=== PATIENT | female | born 1990 | race Caucasian/White ===

== ENCOUNTER 2022-01-31 16:36 | Outpatient (CLI) | payer OTHER, SELFPAY ==
--- NOTE | 2022-01-31 16:30 | US_ITS ---
WS: [id number] THYROID ULTRASOUND HISTORY: thyromegaly COMPARISON: None available. Right lobe: 1.8 cm x 1.4 cm x 5.5 cm (w x ap x l). Volume: 7.5 cm3. Normal size and echotexture. No significant are dominant nodules are present. Left lobe: 1.7 cm x 1.3 cm x 4.7 cm (w x ap x l). Volume: 5.2 cm3. Normal size and echotexture. No significant or dominant nodules are present. Isthmus: 0.3 cm. Subtle hypoechoic area along the LEFT cervical chain may be a small cluster of lymph nodes. This is e xternal to the thyroid but medial to the carotid. No increased vascularity. US/US thyroid 55050 IMPRESSION: Normal thyroid ultrasound. Subtle ill-defined hypoechoic area measuring 1.6 x 0.8 x 1.6 cm along the LEFT cervical chain. This is between the thyroid and the carotid artery. Suspect thi s is probably small cluster of lymph nodes. If this is palpable consider follow -up neck CT.
== END 2022-01-31 16:37 | disposition home or self-care (01) ==
LOC: RAD 16:37
PROVIDERS: PCP Family Medicine; Visit Provider Internal Medicine
DX: E01.0 Iodine-deficiency related diffuse (endemic) goiter (principal)
CPT/HCPCS: 76536

== ENCOUNTER 2022-02-12 08:49 | Outpatient (CLI) | payer OTHER, SELFPAY ==
--- NOTE | 2022-02-12 09:15 | NM_ITS ---
WS: [id number] NUCLEAR MEDICINE 24 HOUR I-123 THYROID UPTAKE INDICATION: Hyperthyroidism TECHNIQUE: I-123 24 HOUR THYROID UPTAKE WITH PLANAR IMAGING. 133 [facility] JASON 123 COMPARISON: Ultrasound January 31, 2022 FINDINGS: Increased 24-hour thyroid uptake measures 64.12%. Homogeneous thyroid uptake in both the RIGHT and LEFT thyroid lobes. No cold defects. No other suspic ious abnormalities. NORMAL 24H THRYOID UPTAKE 8-35% NM/NM thyroid uptake multi [id number] IMPRESSION: Increased 24 hour thyroid uptake measuring 64%. Recommend correlati on for hyperthyroidism and thyroiditis.
== END 2022-02-12 08:50 | disposition home or self-care (01) ==
PROVIDERS: PCP Family Medicine; Visit Provider Internal Medicine
DX: R94.6 Abnormal results of thyroid function studies (principal); E03.9 Hypothyroidism, unspecified
CPT/HCPCS: 78014; A9516

== ENCOUNTER → 2022-03-02 10:22 | Outpatient (BNVA) | payer OTHER, SELFPAY | PROVIDERS: PCP Family Medicine; Visit Provider Emergency Medicine | DX: N39.0 Urinary tract infection, site not specified (principal); N10 Acute pyelonephritis | CPT/HCPCS: 81000 ==

== ENCOUNTER 2022-04-01 08:53 | Outpatient (CLI) | payer OTHER, SELFPAY ==
--- NOTE | 2022-04-01 09:15 | CT_ITS ---
WS: [id number] CT NECK TECHNIQUE: Contrast-enhanced CT of the neck with coronal and sagittal reformatted images. CLINICAL INFORMATION: Palpable neck mass, on ultrasound thought to be possible COMPARISON: [id number] DLP: 283.[address] scans at [facility] use at least one of these dose optimization techniques: automated e xposure control; mA and/or kV adjustment per patient size (includes targeted exams where dose is matc hed to clinical indication); or iterative reconstruction. FINDINGS: Normal submandibular glands. Normal parotid glands. Normal posterior nasopharynx. Normal posterior na sopharynx and parapharyngeal fat. No cervical lymphadenopathy. Prominent jugulodigastric lymph nodes bilaterally within normal limits. Normal palatine tonsils. No evidence of supraglottic or glottic mass. Normal subglottic airway. Lung apices are well aerated. Mastoid air cells and paranasal sinuses are well aerated. Small retention cy st LEFT maxillary sinus. Normal thyroid gland enhancement. Lung apices are well aerated. Straightening of the normal cervical lordosis. CT/CT neck w con* [id number] IMPRESSION: 1. Salivary glands are normal. 2. No evidence of significant supraglottic or glottic mass. 3. Small retention cyst LEFT maxillary sinus. 4. No cervical lymphadenopathy. 5. No suspicious abnormalities corresponding to the prior ultrasound findings.
[2022-04-01] MEDS: iohexol 350 mg/mL 500 mL Btl (per mL) IV (09:24)
== END 2022-04-01 08:54 | disposition home or self-care (01) ==
LOC: RAD 09:02
PROVIDERS: PCP Family Medicine; Visit Provider Internal Medicine
DX: R22.1 Localized swelling, mass and lump, neck (principal); J34.1 Cyst and mucocele of nose and nasal sinus
CPT/HCPCS: 70491; Q9967

== ENCOUNTER → 2023-08-03 13:58 | Outpatient (BNVA) | payer OTHER, SELFPAY | PROVIDERS: PCP Family Medicine; Visit Provider Nurse Practitioner Family | DX: R30.0 Dysuria (principal); M54.50 Low back pain, unspecified | CPT/HCPCS: 81000 ==